=== PATIENT | female | born 1970 | race Caucasian/White ===

== ENCOUNTER 2020-12-28 19:20 | Emergency (ER) | payer OTHER ==
[~2020-12-28] VITALS: Ht 177.8 cm; Wt 81.2 kg
== END 2020-12-28 22:33 | disposition home or self-care (01) ==
LOC: ER 19:20
DX: S09.8XXA Other specified injuries of head, initial encounter (principal); R10.13 Epigastric pain; W19.XXXA Unspecified fall, initial encounter; Y92.89 Other specified places as the place of occurrence of the external cause

== ENCOUNTER 2021-04-27 21:08 | Emergency (ER) | payer OTHER ==
[~2021-04-27] VITALS: Ht 152.4 cm; Wt 81.6 kg
== END 2021-04-27 23:08 | disposition home or self-care (01) ==
LOC: ER 21:08
DX: R60.0 Localized edema (principal)

== ENCOUNTER → 2021-04-28 | Emergency (ER) | payer OTHER ==
[~2021-04-28] VITALS: Ht 177.8 cm; Wt 81.6 kg
== END | disposition home or self-care (01) ==
LOC: ER 08:56
DX: M79.661 Pain in right lower leg (principal)

== ENCOUNTER 2022-05-29 02:13 | Emergency (ER) | payer OTHER ==
[~2022-05-29] VITALS: Ht 152.4 cm; Wt 85.7 kg
== END 2022-05-29 15:40 | disposition home or self-care (01) ==
LOC: ER 02:13
DX: R11.10 Vomiting, unspecified (principal)

== ENCOUNTER 2022-06-10 17:38 | Emergency (ER) | payer OTHER ==
[~2022-06-10] VITALS: Ht 157.5 cm; Wt 72.1 kg
[2022-06-10] MEDS ORDERED: PEPCID AC20 MG PO (21:17)
[2022-06-10] MEDS ORDERED: LEVSIN/SL0.125 MG SL (21:17)
== END 2022-06-10 21:41 | disposition home or self-care (01) ==
LOC: ER 17:38
DX: R10.31 Right lower quadrant pain (principal); Z88.6 Allergy status to analgesic agent; F31.89 Other bipolar disorder; R19.7 Diarrhea, unspecified; K57.32 Diverticulitis of large intestine without perforation or abscess without bleeding; K43.9 Ventral hernia without obstruction or gangrene; K76.0 Fatty (change of) liver, not elsewhere classified; R16.1 Splenomegaly, not elsewhere classified

== ENCOUNTER 2022-06-18 02:54 | Emergency (ER) | payer OTHER ==
[~2022-06-18] VITALS: Ht 152.4 cm; Wt 89.8 kg
[~2022-06-18 02:54] MED LIST: LEVSIN/SL0.125 MG SL; PEPCID AC20 MG PO
[2022-06-18] MEDS ORDERED: BUPROPION XL150 MG PO (03:03)
[2022-06-18] MEDS ORDERED: RISPERDAL0.5 MG PO (03:03)
[2022-06-18] MEDS ORDERED: CLONAZEPAM0.5 MG PO (03:04)
[2022-06-18] MEDS ORDERED: CIPRO500 MG PO (04:31)
[2022-06-18] MEDS ORDERED: PYRIDIUM DS200 MG PO (04:37)
== END 2022-06-18 04:41 ==
LOC: ER 02:54
DX: N30.80 Other cystitis without hematuria (principal); Z88.6 Allergy status to analgesic agent; F41.8 Other specified anxiety disorders

== ENCOUNTER 2022-11-08 16:58 | Emergency (ER) | payer OTHER ==
[~2022-11-08] VITALS: Ht 152.4 cm; Wt 89.8 kg
[~2022-11-08 16:58] MED LIST changes: +BUPROPION XL150 MG PO; +CIPRO500 MG PO; +CLONAZEPAM0.5 MG PO; +PYRIDIUM DS200 MG PO; +RISPERDAL0.5 MG PO
[2022-11-08] MEDS ORDERED: RISPERIDONE O0.25 MG (17:13)
[2022-11-08] MEDS ORDERED: ATIVAN0.5 M1 PO (17:13)
== END 2022-11-08 19:40 | disposition home or self-care (01) ==
LOC: ER 16:58
DX: K52.9 Noninfective gastroenteritis and colitis, unspecified (principal); F32.89 Other specified depressive episodes; Z88.6 Allergy status to analgesic agent

== ENCOUNTER → 2023-06-28 | Emergency (ER) | payer OTHER ==
[~2023-06-28] VITALS: Ht 152.4 cm; Wt 902.2 kg
[~2023-06-28] MED LIST changes: +ATIVAN0.5 M1 PO; +RISPERIDONE O0.25 MG
== END | disposition left against medical advice (07) ==
LOC: ER 21:14
DX: Z53.21 Procedure and treatment not carried out due to patient leaving prior to being seen by health care provider (principal)

== ENCOUNTER 2023-11-03 20:25 | Emergency (ER) | payer OTHER ==
[~2023-11-03] VITALS: Ht 152.4 cm; Wt 74.8 kg
[~2023-11-03 20:25] MED LIST changes: +BENZTROPINE ME0.5 MG; +HALOPERIDOL2 MG; +INTESTINEX680 M1 PO; +METRONIDAZOLE500 MG PO; +SIMETHICONE125 M1 PO
[2023-11-03] MEDS ORDERED: FAMOTIDINE/PF 20 MG/2 ML VIAL ONE (22:07)
[2023-11-03] MEDS ORDERED: MORPHINE SULFATE 4 MG/ML VIAL IV ONE (22:15)
[2023-11-03] MEDS ORDERED: 0.9 % SODIUM CHLORIDE 500 ML IV SCH (22:15)
[2023-11-03] MEDS ORDERED: FAMOTIDINE/PF 20 MG/2 ML VIAL IV ONE (22:15)
[2023-11-03 23:21] LABS: URINE BILIRRUBIN Negative (NEGATIVE); URINE BLOOD NHT; URINE COLOR Yellow; URINE GLUCOSE Negative (NEGATIVE); URINE KETONE Negative (NEGATIVE); URINE LEUKOCYTE Negative; URINE NITRATE Negative; URINE PROTEIN Negative (NEGATIVE); URINE UROBILINOGEN 0.2 E.U./dl
[2023-11-03 23:28] LABS: URINE BACTERIA 6.2 uL (0.0-1933); URINE EPITHELIAL CELLS 4.4 uL (0.0-38.8); URINE WBC 3.8 uL (0.0-23.2)
[2023-11-04 00:17] LABS: URINE APPEARANCE CLEAR
[2023-11-04 00:18] LABS: HEMATOCRIT 43.4 % (36.0-45.00); HEMOGLOBIN 14.8 g/dL (12.0-15.00); MEAN CELL VOLUME 88.3 fL (80.00-100.00); MEAN CORPUSCULAR HEMOGLOBIN 30.1 pg (27.00-32.0); MEAN CORPUSCULAR HGB CONC 34.1 g/dl (32.0-36.0); PLATELET COUNT 276 K/uL (150-450); RED BLOOD COUNT 4.91 M/uL (4.00-6.00); RED CELL DISTRIBUTION WIDTH 13.9 % (11.5-14.5)
[2023-11-04 01:20] LABS: INR 1.25; PARTIAL THROMBOPLASTIN TIME 26.4 SECONDS (22.0-34.0); PROTHROMBIN TIME 12.9 SECONDS (9.0-11.5)
[2023-11-04 01:22] LABS: CALCIUM 9.5 mg/dL (8.5-10.1); CREATININE SERUM 0.56 mg/dL (0.55-1.02); GFR 113.68; POTASSIUM 4.24 mEq/L (3.5-5.1)
[2023-11-04] MEDS ORDERED: PEPCID40 MG PO (03:19)
[2023-11-04] MEDS ORDERED: INTESTINEX680 M2 PO (03:19)
[2023-11-04] MEDS ORDERED: LEVSIN/SL0.125 MG SL (03:19)
== END 2023-11-04 03:27 ==
LOC: ER 20:26
PROVIDERS: General Practice
DX: A09 Infectious gastroenteritis and colitis, unspecified (principal); K43.9 Ventral hernia without obstruction or gangrene; K57.30 Diverticulosis of large intestine without perforation or abscess without bleeding; Z88.6 Allergy status to analgesic agent; Z88.8 Allergy status to other drugs, medicaments and biological substances

== ENCOUNTER → 2024-01-31 | Emergency (ER) | payer OTHER ==
[~2024-01-31] VITALS: Ht 160 cm; Wt 80.7 kg
[~2024-01-31] MED LIST changes: +INTESTINEX680 M2 PO; +PEPCID40 MG PO
== END | disposition left against medical advice (07) ==
LOC: ER 05:54
DX: Z53.21 Procedure and treatment not carried out due to patient leaving prior to being seen by health care provider (principal)

== ENCOUNTER → 2024-02-19 | Emergency (ER) | payer OTHER ==
[~2024-02-19] VITALS: Ht 152.4 cm; Wt 78.9 kg
[~2024-02-19] MED LIST changes: +RISPERIDONE O0.25 MG PO
== END | disposition home or self-care (01) ==
LOC: ER 19:05
DX: Z53.21 Procedure and treatment not carried out due to patient leaving prior to being seen by health care provider (principal)

== ENCOUNTER 2024-08-10 05:03 | Emergency (ER) | payer OTHER ==
[~2024-08-10] VITALS: Ht 152.4 cm; Wt 81.2 kg
[2024-08-10 06:19] LABS: HEMATOCRIT 40.7 % (36.0-45.00); HEMOGLOBIN 13.7 g/dL (12.0-15.00); MEAN CELL VOLUME 88.4 fL (80.00-100.00); MEAN CORPUSCULAR HEMOGLOBIN 29.8 pg (27.00-32.0); MEAN CORPUSCULAR HGB CONC 33.7 g/dl (32.0-36.0); PLATELET COUNT 225 K/uL (150-450); RED BLOOD COUNT 4.61 M/uL (4.00-6.00); RED CELL DISTRIBUTION WIDTH 13.1 % (11.5-14.5)
[2024-08-10 06:52] LABS: URINE BILIRRUBIN Negative (NEGATIVE); URINE BLOOD Negative; URINE COLOR Yellow; URINE GLUCOSE Negative (NEGATIVE); URINE KETONE Negative (NEGATIVE); URINE LEUKOCYTE Negative; URINE NITRATE Negative; URINE PROTEIN Negative (NEGATIVE); URINE UROBILINOGEN 0.2 E.U./dl
[2024-08-10 06:56] LABS: URINE APPEARANCE CLEAR; URINE BACTERIA 133.2 uL (0.0-1933); URINE EPITHELIAL CELLS 8.2 uL (0.0-38.8); URINE RBC 9.4 uL (0.0-20.8); URINE WBC 2.6 uL (0.0-23.2)
[2024-08-10] MEDS ORDERED: MIRALAX510 GM PO (07:22)
== END 2024-08-10 07:32 ==
LOC: ER 05:50
PROVIDERS: General Practice
DX: K59.00 Constipation, unspecified (principal); R10.9 Unspecified abdominal pain; E11.9 Type 2 diabetes mellitus without complications; Z88.6 Allergy status to analgesic agent

== ENCOUNTER → 2025-03-13 | Emergency (ER) | payer OTHER ==
[~2025-03-13] MED LIST changes: +MIRALAX510 GM PO; +PROBIOTIC1 EAC2 PO
== END | disposition left against medical advice (07) ==
LOC: ER 19:49
DX: Z53.21 Procedure and treatment not carried out due to patient leaving prior to being seen by health care provider (principal)

== ENCOUNTER 2025-03-14 17:47 | Emergency (ER) | payer OTHER ==
[~2025-03-14] VITALS: Ht 152.4 cm; Wt 85.7 kg
[~2025-03-14 17:47] MED LIST changes: -PROBIOTIC1 EAC2 PO
[2025-03-14] MEDS ORDERED: ONDANSETRON HCL 2 MG/ML VIAL IV ONE (20:15)
[2025-03-14] MEDS ORDERED: MORPHINE SULFATE 4 MG/ML VIAL IV PRN (20:15)
[2025-03-14] MEDS ORDERED: PANTOPRAZOLE SODIUM 40 MG/VIAL VIAL IV ONE (20:15)
[2025-03-14] MEDS ORDERED: 0.9 % SODIUM CHLORIDE 1,000 ML IV ONE (20:15)
[2025-03-14] MEDS ORDERED: ONDANSETRON HCL 2 MG/ML VIAL ONE (20:17)
[2025-03-14 21:38] LABS: ALT/SGPT 38.0 U/L (12-78); AST/SGOT 22.0 U/L (15-37); BILIRUBIN TOTAL 0.61 mg/dL (0.3-1.2); BUN CREA RATIO 10.0 (7.0-25.0); CREATININE SERUM 0.7 mg/dL (0.55-1.02); GFR 87.2; GLOBULINA 5.5 G/DL (2.4-3.5); GLUCOSE FASTING 139.0 mg/dL (65-100); OSMOLALITY SERUM 276.0 MOSM/KG (275-295)
[2025-03-14 22:00] LABS: URINE APPEARANCE Clear; URINE BILIRRUBIN Negative (NEGATIVE); URINE BLOOD Negative; URINE COLOR Yellow; URINE GLUCOSE Negative (NEGATIVE); URINE KETONE Negative (NEGATIVE); URINE LEUKOCYTE Negative; URINE NITRATE Negative; URINE PROTEIN Negative (NEGATIVE); URINE UROBILINOGEN 0.2 E.U./dl
[2025-03-14 22:04] LABS: URINE BACTERIA 264.1 uL (0.0-1933); URINE EPITHELIAL CELLS 7.6 uL (0.0-38.8); URINE RBC 12.8 uL (0.0-20.8); URINE WBC 2.6 uL (0.0-23.2)
[2025-03-14 22:10] LABS: ob POSITIVE (NEGATIVE)
[2025-03-14 22:43] LABS: URINE CAST 0.00 uL (0.0-1.40)
[2025-03-15 00:44] LABS: BASO % 0.3 % (0.1-1.2); EOS # 0.03 (0.04-0.54); EOS % 0.2 % (0.7-7.0); LYMPH # 2.28 (1.18-3.74); LYMPH % 17.2 % (19.3-53.1); MEAN PLATELET VOLUME 9.20 fl (9.4-12.4); MONO # 0.78 (0.24-0.82); MONO % 5.9 % (4.7-12.5); NEUT # 10.09 (1.56-6.13); NEUT % 76.2 % (34.0-71.1); RED CELL DISTRIBUTION WIDTH 12.4 % (11.6-14.4)
[2025-03-15] MEDS ORDERED: LEVSIN/SL0.125 MG SL (00:58)
[2025-03-15] MEDS ORDERED: METRONIDAZOLE500 MG PO (00:58)
[2025-03-15] MEDS ORDERED: PROBIOTIC1 EAC2 PO (00:58)
[2025-03-15] MEDS ORDERED: CIPRO500 MG PO (00:58)
[2025-03-15] MEDS ORDERED: PEPCID AC20 MG PO (00:58)
== END 2025-03-15 01:24 | disposition home or self-care (01) ==
LOC: ER 17:47
PROVIDERS: General Practice
DX: K57.32 Diverticulitis of large intestine without perforation or abscess without bleeding (principal); K43.9 Ventral hernia without obstruction or gangrene; Z88.6 Allergy status to analgesic agent; Z88.8 Allergy status to other drugs, medicaments and biological substances